=== PATIENT | male | born 1975 | race Two or more races ===

== ENCOUNTER 2016-03-31 13:13 | Emergency (ER) | payer OTHER | END 2016-03-31 13:54 | disposition home or self-care (01) | LOC: ED 13:13 | DX: B34.9 Viral infection, unspecified (principal); K58.9 Irritable bowel syndrome, unspecified; F17.210 Nicotine dependence, cigarettes, uncomplicated ==

== ENCOUNTER 2016-06-06 19:06 | Emergency (ER) | payer OTHER ==
--- NOTE | 2016-06-06 20:17 | RAD ---
Name: ROSALEE KHALIL Exam: Two-view chest Comparison: None Clinical history: Cough and fever Findings: 2 views of the chest are submitted. The heart mediastinum and hilar structures are within normal limits. There is no failure, infiltrate, pleural effusion or pneumothorax. Regional skeleton is within normal limits. Impression: No acute cardiopulmonary process
[2016-06-06] MEDS ORDERED: DOXYCYCLINE HYCLATE 100 MG TABLET ONE (21:00)
== END 2016-06-06 21:09 | disposition home or self-care (01) ==
LOC: ED 19:06
DX: J11.00 Influenza due to unidentified influenza virus with unspecified type of pneumonia (principal); F17.210 Nicotine dependence, cigarettes, uncomplicated
CPT/HCPCS: 71020; 87804; 99283 ×2; A9270